=== PATIENT | female | born 1960 | race Hispanic/Latino ===

== ENCOUNTER 2018-01-01 18:37 | Emergency (ER) | payer SELFPAY ==
[2018-01-01 18:47] VITALS: BP 134/84
[2018-01-01] MEDS ORDERED: PERCOCET 5/325 PO ONE (19:35)
[2018-01-01] MEDS ORDERED: PERCOCET 5/325 ONE (19:36)
--- NOTE | 2018-01-01 19:44 | XRay Report ---
FINAL REPORT EXAM: XR SHOULDER 2+V RT HISTORY: pain and decreased ROM r/t injury status post fall today TECHNIQUE: AP and Y views of the right shoulder PRIORS: None. FINDINGS: There is an acute comminuted fracture involving the right humeral head and neck. The transverse portion is noted across the neck which is minimally impacted. A vertical portion traverses greater tuberosity. There is no evidence of dislocation. Joint spaces are maintained and bony mineralization is normal. IMPRESSION: Acute comminuted fracture involving the right humeral head and neck. No dislocation.
--- NOTE | 2018-01-01 19:58 | Emergency Department Report ---
Upper Extremity - HPI Chief Complaint: Extremity Injury, Upper Stated Complaint: (FELL) SHOULDER PAIN Time Seen by Provider: 01/01/18 19:33 Upper Extremity: Right Shoulder Occurred When: Today Mechanism: Fall Severity: severe Symptoms: Yes Pain with Movement, Yes Limited Range of Movement, No Deformity, No Numbness, No Weakness, No Swelling, No Bruising/Ecchymosis, No Laceration or Abrasion ED Review of Systems ROS: Stated complaint: (FELL) SHOULDER PAIN Other details as noted in HPI Comment: All other systems reviewed and negative Musculoskeletal: arthralgia (right shoulder pain) ED Past Medical Hx - Past Medical History Previous Medical History?: No - Surgical History Additional Surgical History: tubal ligation - Social History Smoking Status: Current Every Day Smoker Substance Use Type: Alcohol - Medications Home Medications: Home Medications Medication Instructions Recorded Confirmed Last Taken Type Sulfamethoxazole/Trimethoprim 1 each PO BID #20 tablet 09/29/15 Unknown Rx [Bactrim DS TAB] Ibuprofen [Motrin 600 MG tab] 600 mg PO Q8H PRN #30 tablet 01/01/18 Unknown Rx traMADol [Ultram 50 MG tab] 50 mg PO Q4HR PRN #12 tablet 01/01/18 Unknown Rx Upper Extremity Exam - Exam General: Vital signs noted. No distress. Alert and acting appropriately. Shoulder Exam: Yes Shoulder Tenderness, Yes Clavicle Tenderness, Yes AC Joint Tenderness, No Normal Range of Motion in Shoulder, No Shoulder Deformity Arm Exam: No Arm/Humerus Tenderness, No Arm Deformity Elbow: No Elbow Tenderness, No Normal Range of Motion in Elbow, No Elbow Deformity Forearm: No Forearm Tenderness, No Forearm Deformity, No Pain with Pronation, No Pain with Supination ED Course Vital Signs 01/01/18 18:43 Temperature 98 F Pulse Rate 82 Respiratory 18 Rate Blood Pressure 134/84 O2 Sat by Pulse 100 Oximetry ED Medical Decision Making - Radiology Data Radiology results: report reviewed FINAL REPORT EXAM: XR SHOULDER 2+V RT HISTORY: pain and decreased ROM r/t injury status post fall today TECHNIQUE: AP and Y views of the right shoulder PRIORS: None. FINDINGS: There is an acute comminuted fracture involving the right humeral head and neck. The transverse portion is noted across the neck which is minimally impacted. A vertical portion traverses greater tuberosity. There is no evidence of dislocation. Joint spaces are maintained and bony mineralization is normal. IMPRESSION: Acute comminuted fracture involving the right humeral head and neck. No dislocation. Transcribed By: [facility] Dictated By: ROSA ISELA LCEMENTE MD Electronically Authenticated By: ROSA ISELA CLEMENTE MD Signed Date/Time: 01/01/181941 DD/ 41 TD/TT: 01/01/181941 - Medical Decision Making Patient has been evaluated by this provider fast track. Patient given Tylenol and Percocet for pain management. X-ray of right shoulder shows impression of acute comminuted fracture involving the right humeral head and neck no dislocation. Discussed findings with Dr. Berry orthopedic provider. He recommends place patient on a shoulder immobilizer and pain medication and to have her follow-up in his clinic. Patient elected to be referred to [facility] and she is involved in their [facility] care. Critical care attestation.: If time is entered above; I have spent that time in minutes in the direct care of this critically ill patient, excluding procedure time. ED Disposition Clinical Impression: Shoulder fracture, right Qualifiers: Encounter type: initial encounter Fracture type: closed Qualified Code(s): S42.91XA - Fracture of right shoulder girdle, part unspecified, initial encounter for closed fracture Disposition: DC-01 TO HOME OR SELFCARE Is pt being admited?: No Does the pt Need Aspirin: No Condition: Stable Instructions: Arm Fracture in Adults (ED) Additional Instructions: Please take pain medication as needed. It is very important for him to follow up with orthopedist as this is a serious fracture of the shoulder. Prescriptions: Ibuprofen [Motrin 600 MG tab] 600 mg PO Q8H PRN #30 tablet PRN Reason: Pain traMADol [Ultram 50 MG tab] 50 mg PO Q4HR PRN #12 tablet PRN Reason: Pain Referrals: PRIMARY CAREMD [Primary Care Provider] - 3-5 Days COLIN BERRY MD [Staff Physician] - 3-5 Days [facility] [Outside] - 3-5 Days Forms: Work/School Release Form(ED), Accompanied Note
[2018-01-01] MEDS ORDERED: BENADRYL PO ONE ×2 (20:05→20:20)
[2018-01-01] MEDS ORDERED: BANOPHEN PO ONE (20:05)
== END 2018-01-01 20:35 | disposition home or self-care (01) ==
LOC: ED 18:37
DX: S42.91XA Fracture of right shoulder girdle, part unspecified, initial encounter for closed fracture (principal); Z98.51 Tubal ligation status; F17.200 Nicotine dependence, unspecified, uncomplicated; Z88.5 Allergy status to narcotic agent; Z88.0 Allergy status to penicillin; W19.XXXA Unspecified fall, initial encounter; Y93.89 Activity, other specified; Y92.89 Other specified places as the place of occurrence of the external cause; Y99.8 Other external cause status
CPT/HCPCS: 99283